=== PATIENT | male | born 2000 | race Caucasian/White ===

== ENCOUNTER 2023-08-22 08:40 | Emergency (ER) | payer MEDICAID ==
[~2023-08-22] VITALS: Ht 188 cm; Wt 78.1 kg
[2023-08-22 08:46] VITALS: TEMP 97.8
[2023-08-22 09:20] VITALS: BP 105/66; PULSE 46; RESP 16; O2SAT 100
[2023-08-22] MEDS ORDERED: METH-797 PO (09:28)
--- NOTE | 2023-08-22 10:16 | NUR ---
PT LEFT ED AMBULATORY IN STABLE CONDITION WITH HIS MOTHER. NO IV WAS PLACED. PT WAS EDUCATED BY A FLOAT RN AND DISCHARGE/DISCHARGE ASSESSMENT WAS COMPLETED BY A FLOAT RN.
--- NOTE | 2023-08-22 10:25 | NUR ---
PT LEFT ED WITHOUT HIS PAPERWORK. THIS RN CALLED AND EDUCATED ABOUT DISCHARGE INSTRUCTIONS/RX/AND TO RETURN TO THE ED IF SX DO NOT IMPROVE/TROUBLE FILLING RX. UNDERSTANDING VERBALIZED.
== END 2023-08-22 10:32 | disposition home or self-care (01) ==
LOC: ER 08:40
DX: S20.221A Contusion of right back wall of thorax, initial encounter (principal); Z91.040 Latex allergy status; X58.XXXA Exposure to other specified factors, initial encounter; Y93.69 Activity, other involving other sports and athletics played as a team or group; Y92.89 Other specified places as the place of occurrence of the external cause; Y99.8 Other external cause status
CPT/HCPCS: 99284